=== PATIENT | male | born 1990 | race African-American/Black ===

== ENCOUNTER 2021-06-07 20:50 | Emergency (ER) | payer SELFPAY ==
[~2021-06-07] VITALS: Ht 180 cm; Wt 104.3 kg
[2021-06-07 20:55] VITALS: BP 154/82
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
[2021-06-07] MEDS ORDERED: IBUPROFEN 800 MG (MOTRIN) TAB PO ONE (21:15)
[2021-06-07] MEDS ORDERED: CYCLOBENZAPRINE 10 MG (FLEXERIL) TAB PO SCH (21:15)
[2021-06-07] MEDS ORDERED: NAPR-1071 PO (21:25)
[2021-06-07] MEDS ORDERED: METH-732 PO (21:25)
--- NOTE | 2021-06-07 21:31 | Diagnostic Imaging Report ---
INDICATION: Back pain. FINDINGS: The alignment is normal. The vertebral body heights are well-maintained. There is no spondylolysis or spondylolisthesis. No fractures are identified. IMPRESSION: No focal abnormality in the lumbar spine. Dictated by: Dictated on workstation # [id number]
== END 2021-06-07 21:48 | disposition home or self-care (01) ==
LOC: ER 20:52
DX: M54.50 Low back pain, unspecified (principal); F17.210 Nicotine dependence, cigarettes, uncomplicated
CPT/HCPCS: 72100

== ENCOUNTER 2021-07-05 07:56 | Emergency (ER) | payer SELFPAY ==
[~2021-07-05] VITALS: Ht 180 cm; Wt 108.0 kg
[~2021-07-05 07:56] MED LIST: METH-732 PO; NAPR-1071 PO
--- NOTE | 2021-07-05 10:23 | ED General ---
General Chief Complaint: COVID19 Suspect/Confirmed Stated Complaint: FEVER,DIARRHEA,BODY ACHES X 1 WEEK Nursing Triage Note: PT PRESENTS TO ED VIA POV FROM HOME WITH COMPLAINTS OF INTERMITTENT FEVER AND BODY ACHES SINCE 06/27/21. PT REPORTS HE HAD A NEGATIVE HOME COVID SWAB 06/30/21. PT STATES HE HAS NOT TAKEN TYLENOL OR IBUPROFEN THIS AM. Source of Information: Patient Exam Limitations: No Limitations History of Present Illness Date Seen by Provider: Jul 05, 2021 Time Seen by Provider: 08:10 Initial Comments This 31-year-old young man presents to the emergency room with flulike symptoms including myalgia and fever since June 27. He had a negative home Covid swab on the . He continues to have symptoms. He is also noted as being significantly hypertensive. He denies taking any stimulants or withdrawing from anything that would induce hypertension. He reports prior history of hypertension but he has not been treated for it. Allergies and Home Medications Allergies Coded Allergies: No Known Drug Allergies (Unverified , 06/07/21) Patient Home Medication List Home Medication List Reviewed: Yes Lisinopril/Hydrochlorothiazide (Lisinopril-Hctz 10-12.5 mg Tab) 1 Each Tablet, 1 EACH PO DAILY Prescribed by: AMNA PICKERING on 07/05/21 1024 Methocarbamol (Methocarbamol) 750 Mg Tablet, 750 MG PO Q6-8HR Prescribed by: MARIAJOSE AVILES on 06/07/212124 Naproxen (Naprosyn) 500 Mg Tablet, 500 MG PO BID PRN for PAIN-SEVERE (8-10) Prescribed by: MARIAJOSE AVILES on 06/07/212124 Review of Systems Review of Systems Constitutional: see HPI EENTM: no symptoms reported Respiratory: no symptoms reported Cardiovascular: see HPI Gastrointestinal: no symptoms reported Genitourinary: no symptoms reported Musculoskeletal: see HPI Skin: no symptoms reported Psychiatric/Neurological: No Symptoms Reported Hematologic/Lymphatic: No Symptoms Reported Immunological/Allergic: no symptoms reported Past [place]-Hdcrsw-Dsiwdb Hx Patient Social History Tobacco Use?: Yes Tobacco type used: Cigarettes Smoking Status: Current Everyday Smoker Substance use?: No Alcohol Use?: Yes Alcohol Frequency: Once in a while Pt feels they are or have been: No Immunizations Up To Date First/Initial COVID19 Vaccinat: NONE Second COVID19 Vaccination Piter: NONE Third COVID19 Vaccination Date: NONE Past Medical History Surgeries: No (None reported) Respiratory: No Cardiac: Yes Hypertension Neurological: No Genitourinary: No Gastrointestinal: No Musculoskeletal: No Endocrine: No HEENT: No Cancer: No Psychosocial: No Physical Exam Vital Signs Capillary Refill : Less Than 3 Seconds Height, Weight, BMI Height: '" Weight: lbs. oz. 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 Skin: Normal Color, Warm/Dry Progress/Results/Core Measures Suspected Sepsis SIRS Temperature: Pulse: 93 Respiratory Rate: 18 Blood Pressure 166 /101 Mean: 122 Results/Orders Lab Results Laboratory Tests Test 07/05/21 08:52 Range/Units Influenza Type A (RT-PCR) Not Detected Not Detecte Influenza Type B (RT-PCR) Not Detected Not Detecte SARS-CoV-2 RNA (RT-PCR) Detected H Not Detecte My Orders Orders - AMNA COWART MD Covid 19 Inhouse Test (07/05/21 08:10) Influenza A And B By Pcr (07/05/21 08:10) Vital Signs/I&O Capillary Refill : Less Than 3 Seconds Blood Pressure Mean: 122 Progress Note : Progress Note Blood pressure did not trend down much through the course of his ER visit. We discussed treatment for his hypertension which he is agreeable to. Lisinopril/HCTZ was prescribed. He was encouraged to follow-up with a primary care provider soon as possible for further monitoring and treatment. He did test positive for COVID-19. He does qualify for monoclonal antibody therapy and an order was placed. The nature of the therapy was described and he was provided with a fact sheet. See discharge instructions for more discussion. Departure Impression Primary Impression: COVID-19 Additional Impression: Hypertension Qualified Codes: I10 - Essential (primary) hypertension Disposition: 01 HOME, SELF-CARE Condition: Stable Departure-Patient Inst. Decision time for Depature: 10:20 Referrals: NO,LOCAL PHYSICIAN (PCP/Family) Primary Care Physician Patient Instructions: COVID-19 Overview, High Blood Pressure ED, Sotrovimab FDA Fact Sheet Add. Discharge Instructions: Drink plenty of clear liquids to stay well-hydrated. An order for monoclonal antibody therapy has been submitted to the hospital pharmacy. If a dose becomes available for you they should call you to schedule an infusion time. Please read to the fact sheet attached to educate yourself on Sotrovimab. You may take ibuprofen up to 600 mg every 6 hours and/or Tylenol (acetaminophen) up to 1000 mg every 6 hours as needed for pain or fever. Eat a well-balanced diet and take a multivitamin daily. Because you are having prolonged fever with this bout of COVID-19, please quarantine for a full 10 days through July 09. You may then return to work if you have been fever free without fever reducing medications for 24 hours. Start lisinopril/hydrochlorothiazide as prescribed for your high blood pressure. Please establish with a primary care provider as soon as possible, preferably within 2 weeks to have your blood pressure checked and monitored. You are being provided with a 1 month prescription to get you started on blood pressure treatment. Return to the ER if you have worsening symptoms. Call with questions or concerns. All discharge instructions reviewed with patient and/or family. Voiced understanding. Scripts Lisinopril/Hydrochlorothiazide (Lisinopril-Hctz 10-12.5 mg Tab) 1 Each Tablet 1 EACH PO DAILY, #30 TAB Prov: AMNA COWART MD 07/05/21 Work/School Note: Work Release Form Date Seen in the Emergency Department: Jul 05, 2021 Return to Work: Jul 10, 2021 Restrictions: Return-No Fever (24hrs), Return-No Vomiting(24hrs) AMNA COWART MD Jul 05, 2021 10:23
[2021-07-05] MEDS ORDERED: LISI1TAB44 PO (10:24)
[2021-07-05 10:30] VITALS: BP 164/102
== END 2021-07-05 10:30 | disposition home or self-care (01) ==
LOC: EDUNIT# 07:56 → ER 07:58
DX: U07.1 COVID-19 (principal); F17.210 Nicotine dependence, cigarettes, uncomplicated; I10 Essential (primary) hypertension
CPT/HCPCS: 87636; 99283